=== PATIENT | female | born 1995 | race Caucasian/White ===

== ENCOUNTER 2018-09-28 00:08 | Outpatient (CLI) | payer SELFPAY, MEDICAID | END 2018-09-28 01:52 | disposition home or self-care (01) | LOC: OBT 00:08 → L-D 00:22 → OBT 01:52 | DX: O26.892 Other specified pregnancy related conditions, second trimester (principal); R51 Headache; Z3A.23 23 weeks gestation of pregnancy | CPT/HCPCS: G0463 ==

== ENCOUNTER 2018-09-28 01:57 | Emergency (ER) | payer OTHER, MEDICAID ==
[2018-09-28] MEDS: ACETAMINOPHEN 500 MG TAB PO (03:09)
== END 2018-09-28 03:20 | disposition home or self-care (01) ==
LOC: FTE 01:57
DX: O99.519 Diseases of the respiratory system complicating pregnancy, unspecified trimester (principal); J32.9 Chronic sinusitis, unspecified; Z3A.00 Weeks of gestation of pregnancy not specified
CPT/HCPCS: 99283